=== PATIENT | male | born 1995 | race Caucasian/White ===

== ENCOUNTER 2018-05-24 11:50 | Emergency (ER) | payer OTHER ==
[2018-05-24 12:26] LABS: ABS Basophils 0 10^3/ul (0-0.2); ABS Eosinophils 0.1 10^3/ul (0-0.6); ABS Lymphocytes 0.6 10^3/ul (1.0-4.8); ABS Monocytes 0.6 10^3/ul (0-0.8); ABS Neutrophils 3.1 10^3/ul (1.5-7.7); ABS Nucleated RBC 0 10^3/ul; Eosinophil % 2.1 % (0-6); Hematocrit 45 % (42-52); Hemoglobin 15.2 g/dl (14.0-18.0); Lymphocyte % 13.3 % (25-47); Mean Corpuscular HGB Conc 34 g/dl (31-36); Mean Corpuscular Hemoglobin 30 pg (27-31); Mean Corpuscular Volume 90 fL (80-94); Mean Platelet Volume 7.5 fL (7.4-10.4); Nucleated Red Blood Cells % 0.5; Platelet Count 171 10^3/ul (150-450); Red Blood Count 5.03 10^6/ul (4.00-5.40); Red Cell Distribution Width 13 % (10.5-15); White Blood Count 4.4 10^3/ul (3.5-10.8)
[2018-05-24 12:35] LABS: INR 0.99 (0.77-1.02)
[2018-05-24] MEDS ORDERED: Iohexol 350* (CONTRAST) 500 ML MDV IV ONE (12:53)
--- NOTE | 2018-05-24 13:39 | ED ---
HPI Chest Pain - HPI Summary HPI Summary: Pt is a 22 y/o male who presents to the ED c/o CP. He has a hx of multiple PTX and chest tubes, and 2 days ago had sudden sharp left-sided CP while on a 6 hour long bus ride. Pt then felt mild SOB, QUICK, nausea, dizziness, and facial numbness as well. He describes the sensation as a pulmonary bleb popping, and is concerned he has another PTX. He was sent here from , where a CXR ruled out a PTX. Pt still feels the CP, rated a 5/10 in severity, and has pain at the end of inhalation. The pain is made worse with lying flat. He denies any LE pain , abdominal pain, vomiting, cough, or fever. He denies any diagnoses, particularly for lung disease. Pt denies any smoking, but states he has second- hand smoke exposure in his house. Pts brother has had a PTX, but he denies any FHx of blood clot disorders or lung disease. He is accompanies by his girlfriend. - History of Current Complaint Hx Obtained From: Patient Onset/Duration: Started Days Ago - 2, Still Present Timing: Constant Initial Severity: Moderate Current Severity: Moderate Pain Intensity: 5 Pain Scale Used: 0-10 Numeric Chest Pain Location: Left Anterior Chest Pain Radiates: No Character: Sharp/Stabbing Aggravating Factor(s): Recumbent Position Alleviating Factor(s): Upright Position Associated Signs and Symptoms: Positive: Chest Pain, Headaches, Numbness, Dizziness, Shortness of Breath, Nausea. Negative: Fever, Cough, Abdominal Pain , Calf Pain/Swelling, Vomiting Related History: Similar Episode/Dx as: - PTX - Risk Factors Pulmonary Embolism Risk Factors: Recent Travel - Allergy/Home Medications Allergies/Adverse Reactions: Allergies Allergy/AdvReac Type Severity Reaction Status Date / Time No Known Allergies Allergy Verified 05/24/18 11:58 PMH/Surg Hx/FS Hx/Imm Hx Previously Healthy: No - multiple PTX with chest tubes Endocrine/Hematology History: Denies: Hx Diabetes Cardiovascular History: Denies: Hx Hypertension Respiratory History: Reports: Other Respiratory Problems/Disorders - PTX - Surgical History Surgery Procedure, Year, and Place: chest tubes and attempts at pleural scarring Infectious Disease History: No Infectious Disease History: Denies: Traveled Outside the [place] in Last 30 Days - Family History Known Family History: Positive: Other - PTX Negative: Respiratory Disease, Blood Disorder - clotting - Social History Occupation: Student Lives: Dormitory/Roommates - house with several roommates Alcohol Use: None Hx Substance Use: No Substance Use Type: Reports: None Hx Tobacco Use: No Smoking Status (MU): Never Smoked Tobacco Review of Systems Negative: Fever Positive: Chest Pain Positive: Shortness Of Breath. Negative: Cough Positive: Nausea. Negative: Abdominal Pain, Vomiting Positive: no symptoms reported Negative: Other - LE pain Neurological: Other - Dizziness Positive: Headache, Numbness Psychological: Normal All Other Systems Reviewed And Are Negative: Yes Physical Exam - Summary Physical Exam Summary: Appearance: Well-appearing, moderate pain distress, well-nourished Skin: Warm, color reflects adequate perfusion, dry Head: Normal Head/Face inspection, atraumatic Eyes: Conjunctiva clear ENT: Normal inspection Neck: Supple, no nodes, no JVD Respiratory: Lungs clear, normal breath sounds, no respiratory distress Cardio: RRR, No murmur, pulses normal, brisk capillary refill, scars on lateral chest under skin Abdomen: Soft, nontender Bowel sounds: Present Musculoskeletal: Strength Intact/ROM intact, no calf tenderness, no edema. Psychological: Normal Neuro: Alert, muscle tone normal, no focal deficit Triage Information Reviewed: Yes Vital Signs On Initial Exam: Initial Vitals Temp Pulse Resp BP Pulse Ox 99 F 63 16 127/70 99 05/24/18 11:56 05/24/18 11:56 05/24/18 11:56 05/24/18 11:56 05/24/18 11:56 Vital Signs Reviewed: Yes Diagnostics - Vital Signs Vital Signs Temp Pulse Resp BP Pulse Ox 05/24/18 13:32 98.9 F 68 14 121/73 98 05/24/18 11:56 99 F 63 16 127/70 99 - Laboratory Lab Results: Lab Results 05/24/18 05/24/18 05/24/18 Range/Units 12:17 12:17 12:17 WBC 4.4 (3.5-10.8) 10^3/ul RBC 5.03 (4.00-5.40) 10^6/ul Hgb 15.2 (14.0-18.0) g/dl Hct 45 (42-52) % MCV 90 (80-94) fL MCH 30 (27-31) pg MCHC 34 (31-36) g/dl RDW 13 (10.5-15) % Plt Count 171 (150-450) 10^3/ul MPV 7.5 (7.4-10.4) fL Neut % (Auto) 71.0 (38-83) % Lymph % (Auto) 13.3 L (25-47) % [place]ershaw % (Auto) 13.4 H (0-7) % Eos % (Auto) 2.1 (0-6) % Baso % (Auto) 0.2 (0-2) % Absolute Neuts (auto) 3.1 (1.5-7.7) 10^3/ul Absolute Lymphs (auto) 0.6 L (1.0-4.8) 10^3/ul Absolute Monos (auto) 0.6 (0-0.8) 10^3/ul Absolute Eos (auto) 0.1 (0-0.6) 10^3/ul Absolute Basos (auto) 0 (0-0.2) 10^3/ul Absolute Nucleated RBC 0 10^3/ul Nucleated RBC % 0.5 INR (Anticoag Therapy) (0.77-1.02) APTT (26.0-36.3) seconds D-Dimer, Quantitative (Less Than 230) ng/mL Sodium 139 (135-145) mmol/L Potassium 4.0 (3.5-5.0) mmol/L Chloride 104 (101-111) mmol/L Carbon Dioxide 29 (22-32) mmol/L Anion Gap 6 (2-11) mmol/L BUN 11 (6-24) mg/dL Creatinine 0.83 (0.67-1.17) mg/dL Est GFR ( Amer) 141.5 (>60) Est GFR (Non-Af Amer) 117.0 (>60) BUN/Creatinine Ratio 13.3 (8-20) Glucose 94 (70-100) mg/dL Lactic Acid 0.9 (0.5-2.0) mmol/L Calcium 9.8 (8.6-10.3) mg/dL Magnesium 2.0 (1.9-2.7) mg/dL Total Bilirubin 0.60 (0.2-1.0) mg/dL AST 18 (13-39) U/L ALT 15 (7-52) U/L Alkaline Phosphatase 66 (34-104) U/L Total Creatine Kinase 86 (10-223) U/L CK-MB (CK-2) 1.0 (0.6-6.3) ng/mL Troponin I 0.00 (<0.04) ng/mL Total Protein 7.0 (6.4-8.9) g/dL Albumin 4.8 (3.2-5.2) g/dL Globulin 2.2 (2-4) g/dL Albumin/Globulin Ratio 2.2 (1-3) 05/24/ Range/Units 12:17 WBC (3.5-10.8) 10^3/ul RBC (4.00-5.40) 10^6/ul Hgb (14.0-18.0) g/dl Hct (42-52) % MCV (80-94) fL MCH (27-31) pg MCHC (31-36) g/dl RDW (10.5-15) % Plt Count (150-450) 10^3/ul MPV (7.4-10.4) fL Neut % (Auto) (38-83) % Lymph % (Auto) (25-47) % [place]haw % (Auto) (0-7) % Eos % (Auto) (0-6) % Baso % (Auto) (0-2) % Absolute Neuts (auto) (1.5-7.7) 10^3/ul Absolute Lymphs (auto) (1.0-4.8) 10^3/ul Absolute Monos (auto) (0-0.8) 10^3/ul Absolute Eos (auto) (0-0.6) 10^3/ul Absolute Basos (auto) (0-0.2) 10^3/ul Absolute Nucleated RBC 10^3/ul Nucleated RBC % INR (Anticoag Therapy) 0.99 (0.77-1.02) APTT 30.2 (26.0-36.3) seconds D-Dimer, Quantitative < 200 (Less Than 230) ng/mL Sodium (135-145) mmol/L Potassium (3.5-5.0) mmol/L Chloride (101-111) mmol/L Carbon Dioxide (22-32) mmol/L Anion Gap (2-11) mmol/L BUN (6-24) mg/dL Creatinine (0.67-1.17) mg/dL Est GFR ( Amer) (>60) Est GFR (Non-Af Amer) (>60) BUN/Creatinine Ratio (8-20) Glucose (70-100) mg/dL Lactic Acid (0.5-2.0) mmol/L Calcium (8.6-10.3) mg/dL Magnesium (1.9-2.7) mg/dL Total Bilirubin (0.2-1.0) mg/dL AST (13-39) U/L ALT (7-52) U/L Alkaline Phosphatase (34-104) U/L Total Creatine Kinase (10-223) U/L CK-MB (CK-2) (0.6-6.3) ng/mL Troponin I (<0.04) ng/mL Total Protein (6.4-8.9) g/dL Albumin (3.2-5.2) g/dL Globulin (2-4) g/dL Albumin/Globulin Ratio (1-3) Result Diagrams: 05/24/18 12:17 05/24/18 12:17 Lab Statement: Any lab studies that have been ordered have been reviewed, and results considered in the medical decision making process. - CT Chest/Thorax CTA CT Interpretation Completed By: Radiologist Summary of CT Findings: NO PULMONARY ARTERIAL FILLING DEFECT TO SUGGEST PULMONARY EMBOLISM. ED physician reviewed radiology report. - EKG 12:08 Cardiac Rate: NL - 62 bpm EKG Rhythm: Sinus Rhythm ST Segment: Normal Ectopy: None Summary of EKG Findings: An EKG at 12:08 reveals nml AV/IV CT, nml QTc, and nml axis. No S1 Q3 T3. Re-Evaluation - Re-Evaluation First Eval Re-Evaluation Time: 13:48 Change: Improved Comment: CP is improved, respiration is unlabored. O2 sat 97% on room air. Chest Pain Course/Dx - Course Course Of Treatment: Pt is a 22 y/o male who presents to the ED c/o CP. He has a hx of PTX, and 2 days ago had sudden sharp left-sided CP while on a 6 hour long bus ride. Pt then felt mild SOB, QUICK, nausea, dizziness, and facial numbness as well. He was sent here from , where a CXR ruled out a PTX. Pt still feels the CP, rated a 5/10 in severity, and has pain at the end of inhalation. The pain is made worse with lying flat. He denies any LE pain, abdominal pain, vomiting, cough, or fever. A physical exam reveals scars on lateral chest bilaterally. A chest/thorax CTA was negative. An EKG was normal with a rate of 62 bpm. Troponin is zero and other labs unremarkable. Final dx is pleurisy, and pt is discharged. He is agreeable with this plan. - Chest Pain Differential Diagnosis/HQI/PQRI: Acute CA, Chest Wall, Lower Respiratory Infection, Pulmonary Embolism, Other: - PTX - Diagnoses Provider Diagnoses: Pleurisy Discharge - Sign-Out/Discharge Documenting (check all that apply): Patient Departure - Discharge - Discharge Plan Condition: Stable Disposition: HOME Patient Education Materials: Pleurisy (ED) Forms: *School Release Referrals: [facility] [Primary Care Provider] - 2 Days Additional Instructions: You did not have a pulmonary embolus (blood clot to the lung) or a pneumothorax based on the CT angiogram of your chest done today. Also your EKG and blood tests were not concerning for any cardiac abnormality. Dr. Morse recommends that you should try ibuprofen 600mg three times a day. ( three tabs of over the counter ibuprofen three times a day) for the pain and inflammation. Follow up with [facility] in 1-2 days. Return to the ER if you have new or worsening symptoms. - Billing Disposition and Condition Condition: STABLE Disposition: Home - Attestation Statements Document Initiated by Brayan: Yes Documenting Scribe: Francoise Morales Provider For Whom Brayan is Documenting (Include Credential): Marianna Morse MD Scribe Attestation: Francoise Schofield, scribed for Marianna Morse MD on 05/24/18 at 1443. Scribe Documentation Reviewed: Yes Provider Attestation: The documentation as recorded by the Francoise blancas accurately reflects the service I personally performed and the decisions made by me, Marianna Morse MD
[2018-05-24 13:51] VITALS: BP 129/93
== END 2018-05-24 13:48 | disposition home or self-care (01) ==
LOC: ED 11:50
DX: R09.1 Pleurisy (principal)
CPT/HCPCS: 36415; 71275; 80053; 82550; 82553; 83605; 83735; 84484; 85025; 85379; 85610; 85730; 93005; 96374; 99282; Q9967